=== PATIENT | male | born 1990 | race Caucasian/White ===

== ENCOUNTER → 2021-01-03 | Outpatient (CLI) | payer BC ==
--- NOTE | 2021-01-03 08:44 | Diagnostic Imaging Report ---
INDICATION: Elevated thyroid stimulating hormone TECHNIQUE: Grayscale sonographic images of the thyroid gland. CORRELATION STUDY: None FINDINGS: RIGHT LOBE: Mildly enlarged 5.4 x 2.1 x 1.2 cm. Along the peripheral mid aspect subcapsular region is a small rounded hypoechoic area measuring 0.4 x 0.5 x 0.3 cm. LEFT LOBE: Borderline enlarged 4.6 x 1.6 x 1.8 cm. There is normal echotexture about the left lobe. Isthmus appears unremarkable. IMPRESSION: Mildly enlarged thyroid gland. There is a small peripheral solid nodule right lobe. TR 4 lesion, moderately suspicious. While currently small, would recommend follow-up ultrasound imaging be obtained in approximately 6-12 months. (Normal gland size: 4-5 x 2 x 2 cm) Dictated by: Dictated on workstation # [id number]
== END ==
LOC: RAD 08:00
PROVIDERS: ATTEND Nurse Practitioner Family
DX: E04.1 Nontoxic single thyroid nodule (principal); R94.6 Abnormal results of thyroid function studies
CPT/HCPCS: 76536

== ENCOUNTER → 2021-07-13 | Outpatient (CLI) | payer BC, OTHER ==
--- NOTE | 2021-07-13 15:38 | Diagnostic Imaging Report ---
PROCEDURE: US Thyroid. TECHNIQUE: Multiple real-time grayscale images were obtained of the thyroid in various projections. INDICATION: Right thyroid nodule, follow-up. COMPARISON: Correlation is made with prior thyroid ultrasound from 01/03/2021. FINDINGS: Right lobe of the thyroid measures 4.9 x 2.0 x 1.5 cm, and left lobe measures 4.1 x 1.6 x 1.8 cm. Isthmus is 2 mm in thickness. Hypoechoic nodule in the upper pole of the right lobe is stable measuring approximately 5 mm x 3 mm x 5 mm. No dominant thyroid mass is detected. Left lobe is unremarkable. IMPRESSION: Stable subcentimeter right lobe thyroid nodule when compared with examination from 01/03/2021. Dictated by: Dictated on workstation # [id number]
== END ==
LOC: RAD 13:00
PROVIDERS: ATTEND Family Medicine
DX: E04.1 Nontoxic single thyroid nodule (principal)
CPT/HCPCS: 76536